=== PATIENT | male | born 1940 | race Caucasian/White ===

== ENCOUNTER 2019-08-18 09:52 | Emergency (ER) | payer OTHER ==
[2019-08-18] MEDS ORDERED: NA CHLORIDE 0.9% 500 ML ONE (10:25)
[2019-08-18 10:46] LABS: Absolute Lymphocytes (CBC) 1.2 K/uL (0.7-4.9); Basophils % 0.6 % (0-1.3); Hematocrit 39.8 % (39.6-49.0); Lymphocytes % 8.9 % (15.3-44.8); MPV 8.7 fL (7.6-11.3); RBC Red Blood Cell Count 4.38 M/uL (4.33-5.43)
[2019-08-18 11:02] LABS: Potassium 3.9 mmol/L (3.5-5.1)
[2019-08-18 11:07] LABS: Urine Bacteria <20 /HPF (NONE SEEN); Urine Culture Reflex Order NOT NEEDED; Urine Mucus 2+ /HPF (NONE SEEN); Urine RBC <5 /HPF (NONE SEEN)
[2019-08-18 11:10] LABS: Platelet Estimate ADEQ; Urine White Blood Cell Casts OK
[2019-08-18 11:11] LABS: Blood Morphology Comment NOT SEEN (NOT SEEN)
[2019-08-18] MEDS ORDERED: CEFTRIAXONE/SWI 1gm 1 GM/10 ML SYR ONE (11:29)
[2019-08-18] MEDS ORDERED: AZITHROMYCIN IV 500 MG in NA CHLORIDE 0.9% 250 ML IVPB ONE (11:30)
[2019-08-18 11:33] LABS: Urine Blood NEGATIVE (NEG); Urine Glucose NEGATIVE (NEG); Urine Protein TRACE (NEG); Urine Specific Gravity 1.025 (1.005-1.030); Urine pH 5.5 (5.0-7.0)
--- NOTE | 2019-08-18 12:22 | RAD REPORT ---
EXAM DESCRIPTION: Henrry Single View08/18/2019 11:11 am CLINICAL HISTORY: Fever COMPARISON: 2012 FINDINGS: Moderate right basilar opacity Left lung appears clear. The heart is normal size IMPRESSION: Moderate right basilar opacity probably pneumonia. This should be followed until it is c lear to help exclude a post obstructive process/underlying mass
--- OUTSIDE RECORDS SUMMARY | 2019-08-18 12:39 | XMS REPORT | Clinical Summary ---
:1940 Author Organization [facility] Address [address] [place] [address] Care Team Providers Name Role Phone Jose Griffin MD Primary Care Provider Allergies Active Allergy Reactions Severity Noted Date Comments Thiopental Sodium Nausea And Vomiting 06/08/2017 Medications Medication Sig Dispensed Refills Start Date End Date Status aspirin 81 MG EC tablet Take 81 mg by 0 Active mouth daily. amLODIPine (NORVASC) 10 Take 10 mg by 0 Active MG tablet mouth daily. silodosin (RAPAFLO) 8 Take by mouth 0 Active mg Cap nightly . dorzolamide-timolol Place 1 drop into 0 Active (COSOPT) 22.3-6.8 mg/mL the left eye 2 ophthalmic solution (two) times daily . brimonidine (ALPHAGAN 1 drop 2 (two) 0 Active P) 0.1 % Drop times daily Left eye. loratadine (CLARITIN) Take 10 mg by 0 Active 10 mg tablet mouth daily. omeprazole-sodium Take 1 capsule by 0 Active bicarbonate (ZEGERID) mouth 2 (two) 40-1.1 mg-gram per times daily. capsule tamsulosin (FLOMAX) 0.4 Take 0.4 mg by 0 Active mg Cap 24 hr capsule mouth daily. METHAZOLAMIDE ORAL Take by mouth. 0 Active netarsudil Apply to eye(s). 0 Ac tive mesylat/latanoprost (ROCKLATAN OPHT) sodium chloride Apply to eye(s). 0 Active (GONZALES-128 OPHT) OMEPRAZOLE ORAL Take by mouth. 0 Active Active Problems Problem Noted Date Pigmentary glaucoma of both eyes, severe stage 018 Combined forms of age-related cataract of both eyes Encounters Date Type Specialty Care Team Description 06/02/2019 Surgery Sacha Wallace INSERTION,EYE T JENNY Lopez MD SHUNT W/WO ARNALDO T 06/02/2019 Anesthesia Event Ese PizanoMADELYN 06/02/2019 Hospital Encounter Sacha Wallace Pigmentar y glaucoma MD Jessica of both eyes, s evere stage (Primary Dx) 06/02/2019 Travel 05/22/2019 Hospital Encounter Pre-Admission Testing 05/22/2019 Travel after 08/17/2018 Social History Tobacco Use Types Packs/Day Years Used Date Never Smoker Smokeless Tobacco: Never Used Alcohol Use Drinks/Week oz/Week Comments Yes 2 Glasses of wine 3.6 4 Cans of beer Sex Assigned at Date Recorded Not on file Job Start Date Occupation Industry Not on file Not on file Not on file Travel History Travel Start Travel End No recent travel history available. Last Filed Vital Signs Vital Sign Reading Time Taken Blood Pressure 125/65 06/02/2019 9:20 AM CDT Pulse 59 06/02/2019 9:20 AM CDT Temperature 36.7 C (98 F) 06/02/2019 8:47 AM CDT Respiratory Rate 17 06/02/2019 9:20 AM CDT Oxygen Saturation 98% 06/02/2019 9:20 AM CDT Inhaled Oxygen Concentration - - Weight 79.8 kg (176 lb) 05/22/2019 11:54 AM CDT Height 175.3 cm (5' 9") 05/22/2019 11:54 AM CDT Body Mass Index 25.99 05/22/2019 11:54 AM CDT Plan of Treatment Not on file Implants Implanted Type Area Medical Education Coordinator Device Shelf Model / Identifier Expiration Serial / Lot Date Iol Tecnis Zcb00 13.5 [place] [id number] - [id number] Ophthalmolog y Left: ADV MED OPTICS 12/13/2020 [id number] / Implanted: Qty: 1 on 04/23/2017 by Linda Ford MD Eye [id number] / I-Stent Cypass s [id number] - [id number] Ophthalmology Left: A LCON LAB:SURG 05/08/2018 [id number] / Implanted: Qty: 1 on 04/23/2017 by Linda Ford MD Eye [id number] / Iol Tecnis Zcb00 14.0 [place] [id number] - [id number] Ophthalmolog y Right: [employer] OPTICS 01/06/2021 [id number] / Implanted: Qty: 1 on 06/11/2017 by Linda Ford MD Eye [id number] / Ahmed Clearpath Model 250 Ophthalmology Left: NEW WORLD MED 12/25/2020 [id number] / Implanted: Qty: 1 on 06/02/2019 by Sacha Wallace MD Eye [id number] / [id number] Procedures Procedure Name Priority Date/Time Associated Diagnosis Comme nts INSERTION,EYE TUBE 06/02/2019 8:00 AM Pigmentary glau coma, SHUNT W/WO GRAFT CDT bilateral, severe stage Case Notes CASE RESCHEDULED VIA FAX ON 05/13/19 MOVE FROM 06/30/19 TO 06/02/19 after 08/17/2018 Results Not on fileafter 08/17/2018 Insurance Payer Benefit Plan / Group Subscriber ID Type Phone A ddress MEDICARE MEDICARE A B xxxxxxxxxxx Medicare AETNA - MGD CARE AETNA INDEMNITY NON CONTR xxxxxx Comm Guarantor Name Account Type Relation to Date of Phone Billing Patient Address Jef Peter Personal/Family Self 1940 [address] (Home) [place] [address]
--- OUTSIDE RECORDS SUMMARY | 2019-08-18 12:39 | XMS REPORT | Clinical Summary ---
:1940 Author Organization [facility] Address [address] [place] [address] Care Team Providers Name Role Phone Yanick Griffin MD Primary Care Provider Allergies No Known Allergies Medications Medication Sig Dispensed Refills Start Date End Date Status esomeprazole (NexIUM) 0 02/19/2019 Active 40 MG capsule amLODIPine (NORVASC) Take 10 mg by 0 04/19/2019 Active 10 mg tablet mouth daily. tamsulosin (FLOMAX) Take 0.4 mg by 0 02/14/2019 Active 0.4 mg capsule mouth daily. brimonidine-timoloL INSTILL 1 DROP 0 08/01/2018 Active (COMBIGAN) 0.2-0.5 % IN LEFT EYE ophthalmic solution EVERY 12 HOURS ROCKLATAN 0.02-0.005 % INSTILL 1 DROP 0 04/07/2019 Active drops IN OS QHS. SUPREP BOWEL PREP KIT 1 kit 1 Bottle 0 04/28/2019 Active 17.5-3.13-1.6 gram recon solnIndications: Adenomatous polyp of colon, unspecified part of colon hyoscyamine Take 1 tablet 20 tablet 12 04/28/2019 04/28/2020 Ac tive (LEVSIN/SL) 0.125 mg (0.125 mg total) SL tabletIndications: by mouth every 4 Functional diarrhea (four) hours as needed for diarrhea. 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; Functional diar seth 04/28/2019 Telephone Gastroenterology Kiara Gomez 04/28/2019 Telephone Gastroenterology Kiara Gomez after 08/17/2018 Family History Relation Name Status Comments Father Mother Social History Tobacco Use Types Packs/Day Years Used Date Never Smoker Smokeless Tobacco: Never Used Alcohol Use Drinks/Week oz/Week Comments Yes Sex Assigned at Date Recorded Not on file Job Start Date Occupation Industry Not on file Not on file Not on file Travel History Travel Start Travel End [place] 04/11/2019 04/16/2019 Last Filed Vital Signs Vital Sign Reading Time Taken Comments Blood Pressure 131/83 04/28/2019 1:09 PM 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 Pulse 75 04/28/2019 1:09 PM 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 Temperature 36.4 C (97.6 F) 04/28/2019 1:09 PM 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 Respiratory Rate - - Oxygen Saturation - - Inhaled Oxygen Concentration - - Weight 81.6 kg (180 lb) 04/28/2019 1:09 PM 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 Height - - Body Mass Index - - Plan of Treatment Health Maintenance Due Date Last Done Comments SHINGLES VACCINES (#1) 05/26/1991 65+ PNEUMOCOCCAL VACCINE (2 of 2 - PPSV23) 05/25/200611/15 INFLUENZA VACCINE 10/04/2019 COLONOSCOPY SCREENING 05/14/2022 05/15/2019 Procedures Procedure Name Priority Date/Time Associated Diagnosis Comme nts SURGICAL PATHOLOGY Routine 05/15/2019 1:58 PM Re sults for this REQUEST CDT procedure are i n the results section. after 08/17/2018 Results Surgical pathology request (05/15/2019 1:58 PM CDT) [facility] DEPARTMENT OF PATHOLOGY AND GENOMIC MEDICINE Surgical pathology See link below [facility] DEPARTMENT OF report for PDF Lab PATHOLOGY AND Report GENOMIC MEDICINE Result status This is Final [facility] DEPARTMENT OF Report for PATHOLOGY AND [id number] GENOMIC MEDICINE Specimen Performing Organization Address City/State/Zipcode Phone Number [facility] DEPARTMENT OF PATHOLOGY AND [address] [place], [place] [address] GENOMIC MEDICINE after 08/17/2018 Insurance Payer Benefit Plan / Subscriber ID Effective Dates Phone Addre ss Type Group MEDICARE MEDICARE PART A xxxxxxxxxxx 2006-Present 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
--- NOTE | 2019-08-18 12:40 | ER ---
Nurse's Notes [facility] Name: Jef Peter Age: 79 yrs Sex: Male : 1940 Arrival Date: 08/18/2019 Time: 09:58 Bed 5 Private MD: Melissa Griffin C Diagnosis: Fever, unspecified;Pneumonia, unspecified organism Presentation: 08/17 10:10 Chief complaint: Patient states: woke up this morning feeling achy and had fever and iw chills , did a lot of work this weekend and feels worn out. Coronavirus screen: Patient denies a cough. Patient denies shortness of breath or difficulty breathing. Patient reports a measured and/or subjective temperature greater than 100.4F. Patient denies travel on a cruise ship or to a country the [facility] currently lists as an affected area. Patient denies contact with known and/or suspected case of COVID-19. Ebola Screen: Patient negative for fever greater than or equal to 101.5 degrees Fahrenheit, and additional compatible Ebola Virus Disease symptoms Patient denies exposure to infectious person. Patient denies travel to an Ebola-affected area in the 21 days before illness onset. No symptoms or risks identified at this time. Initial Sepsis Screen: Does the patient meet any 2 criteria? No. Patient's initial sepsis screen is negative. Does the patient have a suspected source of infection? No. Patient's initial sepsis screen is negative. Risk Assessment: Do you want to hurt yourself or someone else? Patient reports no desire to harm self or others. 10:10 Acuity: ALANNA 3 iw 10:10 Method Of Arrival: Ambulatory iw Historical: - Allergies: 10:14 sodium pentothal; iw - Family history:: not pertinent. - Hospitalizations: : No recent hospitalization is reported. Screenin:20 Abuse screen: Denies threats or abuse. Nutritional screening: No deficits noted. em Tuberculosis screening: No symptoms or risk factors identified. Fall Risk None identified. Assessment: 10:20 General: Appears in no apparent distress. comfortable, Behavior is calm, cooperative, em appropriate for age, Reports chills for 12-24 hours, fever for 12-24 hours. Pain: Denies pain. Neuro: Level of Consciousness is awake, alert, obeys commands, Oriented to person, place, time, situation, Appropriate for age. Cardiovascular: Denies chest pain, Capillary refill < 3 seconds Patient's skin is warm and dry. Respiratory: Airway is patent Respiratory effort is even, unlabored, Respiratory pattern is regular, symmetrical, Denies cough, shortness of breath. GI: Abdomen is flat, Patient currently denies nausea, vomiting. : Denies burning with urination. Derm: Skin is intact, is healthy with good turgor, Skin is pink, warm \T\ dry. Musculoskeletal: Capillary refill < 3 seconds, Range of motion: intact in all extremities. 11:15 Reassessment: Patient appears in no apparent distress at this time. Patient and/or hb family updated on plan of care and expected duration. Pain level reassessed. Patient is alert, oriented x 3, equal unlabored respirations, skin warm/dry/pink. 12:17 Reassessment: Patient appears in no apparent distress at this time. Patient and/or em family updated on plan of care and expected duration. Pain level reassessed. Patient is alert, oriented x 3, equal unlabored respirations, skin warm/dry/pink. 12:47 Reassessment: pending completion of IV ABX before being discharged. em Vital Signs: 10:10 BP 126 / 94; Pulse 62; Resp 16; Temp 98.7; Pulse Ox 98% on R/A; iw 11:15 BP 126 / 55; Pulse 61; Resp 15; Pulse Ox 98% on R/A; hb 12:17 BP 127 / 67; Pulse 61; Resp 16; Pulse Ox 100% on R/A; Pain 0/10; em ED Course: 09:58 Patient arrived in ED. mr 09:58 Melissa Griffin MD is Private Physician. mr 10:04 Tio Matos MD is Attending Physician. rn 10:12 Maikol Guerrero, AMA is Primary Nurse. em 10:13 Triage completed. iw 10:20 Patient has correct armband on for positive identification. Bed in low position. Call em light in reach. Pulse ox on. NIBP on. 10:20 Arm band placed on. em 10:27 Inserted saline lock: 20 gauge in right antecubital area, using aseptic technique. em Blood collected. 10:27 Initial lab(s) drawn, by me, sent to lab. First set of blood cultures drawn by me. em 10:30 Urine Culture Sent. dh3 10:30 Urine Microscopic Only Sent. dh3 11:11 XRAY Chest (1 view) In Process Unspecified. EDMS 12:38 Melissa Griffin MD is Referral Physician. rn 12:44 covid swab sent to lab. em 13:01 No provider procedures requiring assistance completed. IV discontinued, intact, em bleeding controlled, No redness/swelling at site. Pressure dressing applied. 15:56 Health Dept notified/ PUI # [id number]/ [place] in lab notified. eb Administered Medications: 10:30 Drug: NS 0.9% 500 ml Route: IV; Rate: bolus; Site: right antecubital; em 11:27 Follow up: IV Status: Completed infusion; IV Intake: 500ml em 11:28 Drug: Rocephin 1 grams Route: IV; Rate: calculated rate; Site: right antecubital; em 11:45 Follow up: Response: No adverse reaction; IV Status: Completed infusion; IV Intake: 10mlem 11:54 Drug: Zithromax 500 mg Route: IVPB; Infused Over: 1 hrs; Site: right antecubital; em 13:02 Follow up: Response: No adverse reaction; IV Status: Completed infusion; IV Intake: em 250ml Intake: 11:27 IV: 500ml; Total: 500ml. em 11:45 IV: 10ml; Total: 510ml. em 13:02 IV: 250ml; Total: 760ml. em Outcome: 12:38 Discharge ordered by . rn 13:01 Discharged to home ambulatory. em 13:01 Condition: good 13:01 Discharge instructions given to patient, Instructed on discharge instructions, follow up and referral plans. medication usage, Demonstrated understanding of instructions, follow-up care, medications, Prescriptions given X 1. 13:03 Patient left the ED. em Addendum: 08/22/2019 14:02 Addendum: Other pt notified of negative COVID-19 swab results. Pt advised to remain in d m5 isolation until fever free for 3 days and to return to the ED for worsening symptoms. Signatures: Dispatcher [employer] EDUT Darby Hanley RN RN dm5 Rivera, Mary mr Munoz, Edgar, RN RN Renee Montelongo RN RN Tio Matos MD MD rn Baxter, Heather, RN RN Esmer Ervin 3 Magui Woodward
--- OUTSIDE RECORDS SUMMARY | 2019-08-18 12:40 | XMS REPORT | Continuity of Care Document ---
:1940 Author Organization [facility] t Address [address] [place] [address] Care Team Providers Name Role Phone Jose Griffin MD Primary Care Physician Rodrigo GERARD, León Attending Clinician Jessica Wallace MD Attending Clinician Harinder JOSHI Attending Clinician Beth HENRY Attending Clinician Unavailable Hiren Pleitez MD Attending Clinician Patricia Attending Clinician Unavailable Payers Payer Name Policy Policy Number Effective Expiration Source Type Date Date MEDICAREMEDICARE A xxxxxxxxxxx [facility] AETNA - MGD CAREAETNA xxxxxx [facility] INDEMNITY NON - Medical CONTRxxxxxxComm Center MEDICAREMEDICARE PART A xxxxxxxxxxx 2006 [place] AND 00:00:00 [facility] Bxxxxxxxxxxx2006[place] H[place],POS,EPO, xxxxxx 2019 [facility]/ECxxxxxx2019-Pre 00:00:00 Maryann Lara Problems Condition Condition Condition Status Onset Resolution Last Treating Co mments Source Name Details Category Date Date Treatment Clinician Date Pigmentary Pigmentary Disease Active [facility] glaucoma glaucoma 2-14 [facility] - of both of both 00:00: Medical eyes, eyes, 00 Center severe severe stage stage Combined Combined Disease Active [facility] of forms of 2-14 [facility] - age-relate age-relate 00:00: Me dical d cataract d cataract 00 Ce nter of both of both eyes eyes GERD GERD Disease Active [place] (gastroeso (gastroeso Me thodi phageal phageal st reflux reflux disease) disease) Colon Colon Disease Active [place] polyp polyp Methodi [facility] Newman Newman Disease Active [place] esophagus esophagus Meth ag st Diarrhea Diarrhea Disease Active [place] [facility] Method[facility] Allergies, Adverse Reactions, Alerts Allergy Allergy Status Severity Reaction(s) Onset Inactive Treating Comm ents Source Name Type Date Date Clinician Arnie Martinezi Active Nausea And [facility] I [facility] al ty to Vomiting 4-06 [facility] - Sodium adverse 00:00: Medical reaction 00 [facility] Social History Social Habit Start Date Stop Date Quantity Comments Source Sex Assigned At [facility] M ethodist Alcohol intake 2019-04-28 2019-04-28 Current drinker [place] [facility] 00:00:00 00:00:00 of alcohol (finding) Smoking Status Start Date Stop Date Source Never smoker [facility] Medications Ordered Filled Start Stop Current Ordering Indication Dosage Frequency Signature Comments Components Source Medication Medication Date Date Medication? Clinician (SIG) Name Name OMEPRAZOLE Yes Take by [facility] ORAL 3-19 mouth. [facility] - 11:47: Medical 54 Morning Sun sodium 2019-0 Yes Apply to [facility] chloride 3-19 eye(s). [facility] - (GONZALES-128 11:47: Medical OPHT) 20 Center netarsudil 2019-0 Yes Apply to [facility] mesylat/lat 3-19 eye(s). [facility] - anoprost 11:46: Medical ([facility] Center OPHT) METHAZOLAMI 2019-0 Yes Take by [facility] DE ORAL 3-19 mouth. [facility] - 11:46: Medical 39 Morning Sun tamsulosin 2019-0 Yes .4mg QD Take 0.[address] (FLOMAX) 3-19 mg by [facility] - 0.4 mg Cap 11:34: mouth Medica l 24 hr 35 daily. Morning Sun capsule SUPREP 2019-0 Yes Adenomatous 1 kit [place] BOWEL PREP 2-24 polyp of Metho di KIT 00:00: colon, st 17.5-3.13-1 00 unspecified .6 gram part of recon soln colon hyoscyamine 2020- No Functional .125mg Q4H Take 1 [place] (LEVSIN/SL) 2-24 02-24 diarrhea tablet M ethodi 0.125 mg SL 00:00: 23:59 (0.[address] tablet 00 :00 total) by mouth every 4 (four) hours as needed for diarrhea. Place under tongue amLODIPine Yes 10mg QD Take 10 mg [place] (NORVASC) 2-15 by mouth Method i 10 mg 00:00: daily. st tablet 00 ROCKLATAN Yes INSTILL 1 [place] 0.02-0.005 2-03 DROP IN OS Met hodi % drops 00:00: QHS. st 00 esomeprazol 2018-03 Yes [place] (NexIUM) 2-18 Methodi 40 MG 00:00: st capsule 00 tamsulosin 2018-03 Yes .4mg QD Take 0.4 [place] (FLOMAX) 2-13 mg by Methodi 0.4 mg 00:00: mouth st capsule 00 daily. brimonidine Yes INSTILL 1 [place] -timoloL 5-30 DROP IN Methodi (COMBIGAN) 00:00: LEFT EYE st 0.2-0.5 % 00 EVERY 12 ophthalmic HOURS solution omeprazole- Yes 1{capsu Q.5D Take [address] sodium 4-06 le} capsule by [facility] - bicarbonate 12:40: mouth 2 Med ical (ZEGERID) 17 (two) Center 40-1.1 times mg-gram per daily. capsule silodosin Yes QD Take by [facility] t (RAPAFLO) 8 4-06 mouth [facility] - mg Cap 12:38: nightly . Medica l 33 Center dorzolamide Yes 1[drp] Q.5D Place [address] -timolol 4-06 drop into [facility] - (COSOPT) 12:38: the left Medic al 22.3-6.8 33 eye 2 Center mg/mL (two) ophthalmic times solution daily . brimonidine Yes 1[drp] Q.5D [address] (ALPHAGAN 4-06 (two) [facility] - P) 0.1 % 12:38: times Medical Drop 33 daily Left Center eye. aspirin 81 2017- Yes 81mg QD Take [address] MG EC 2-16 by mouth [facility] - tablet 11:27: daily. [address] amLODIPine Yes 10mg QD Take [address] (NORVASC) 2-16 by mouth [facility] - 10 MG 11:27: daily. [facility] tablet [address] [place] [address] loratadine Yes 10mg QD Take [address] (CLARITIN) 2-16 by mouth [facility] - 10 mg 11:27: daily. Medical tablet [address] [place] [address] Vital Signs Vital Name Observation Time Observation Value Comments Source Systolic blood 2019-06-02 09:20:00 125 mm[Hg] [facility] Diastolic blood 2019-06-02 09:20:00 65 mm[Hg] [facility] Heart rate 2019-06-02 09:20:00 59 /min [facility] Respiratory rate 2019-06-02 09:20:00 17 /min [facility] Oxygen saturation in 2019-06-02 09:20:00 98 /min [facility] - Arterial blood by Medical Ce nter Pulse oximetry Body temperature 2019-06-02 08:47:00 36.67 Brianna [facility] Body height 2019-05-22 11:54:00 175.3 cm [facility] Body weight Measured 2019-05-22 11:54:00 79.833 kg [facility] BMI 2019-05-22 11:54:00 25.99 kg/m2 [facility] Systolic blood 2019-04-28 13:09:00 131 mm[Hg] [place] [facility] pressure Diastolic blood 2019-04-28 13:09:00 83 mm[Hg] [place] [facility] pressure Heart rate 2019-04-28 13:09:00 75 /min [facility] Body temperature 2019-04-28 13:09:00 36.44 Brianna [place] [facility] Body weight 2019-04-28 13:09:00 81.647 kg Pal Wolf Procedures Procedure Date / Time Performed Performing Clinician Sourc e INSERTION,EYE TUBE 2019-06-02 08:00:00 Sacha Wallace [facility] - SHUNT W/WO GRAFT [facility] SURGICAL PATHOLOGY 2019-05-15 13:58:00 Robb Pleitez [facility] REQUEST Plan of Care Planned Activity Planned Date Details Comments Source Future Scheduled 2022-05-14 COLONOSCOPY SCREENING Benoit sykes [facility] Test 00:00:00 [code = COLONOSCOPY SCREENING] Future Scheduled 2019-10-04 INFLUENZA VACCINE [place] [facility] Test 00:00:00 [code = INFLUENZA VACCINE] Future Scheduled 2006 65+ PNEUMOCOCCAL [place] [facility] Test 00:00:00 VACCINE (2 of 2 - PPSV23) [code = 65+ PNEUMOCOCCAL VACCINE (2 of 2 - PPSV23)] Future Scheduled 1991-05-26 SHINGLES VACCINES (#1) H [facility] [facility] Test 00:00:00 [code = SHINGLES VACCINES (#1)] Encounters Start End Encounter Admission Attending Care Care Encounter Source Date/Time Date/Time Type Type Clinicians Facility Department ID 2019-07-10 2019-07-10 Office FERMÍN Wallace [id number] 09:22:03 09:32:03 Visit Peter AMBULATOR [id number] Tae-Jin Y 0.2.7.2.686 [id number] 2019-06-26 2019-06-26 Office FERMÍN Wallace [id number] 10:01:04 10:11:04 Visit Peter AMBULATOR [id number] Tae-Jin Y 0.2.7.2.686 [id number] 2019-06-10 2019-06-10 Office FERMÍN Wallace [id number] 09:07:56 09:22:56 Visit Peter AMBULATOR [id number] Tae-Jin Y 0.2.7.2.686 [id number] 2019-06-03 2019-06-03 Office FERMÍN Wallace [id number] 08:54:37 09:09:37 Visit Peter AMBULATOR [id number] Tae-Jin Y 0.2.7.2.686 [id number] 300 2019-05-29 2019-05-29 Office FERMÍN Wallace [id number] 09:42:15 09:57:15 Visit Sacha AMBULATOR [id number] León Y [id number] [id number] 2019-05-15 2019-05-15 Outpatient [facility] [id number] [place] 00:00:00 00:00:00 ROBB [address] 2019-04-25 2019-04-25 Office WallaceFERMÍN [id number] 10:38:18 12:00:50 Visit Sacha AMBULATOR [id number] León Y 0.2.7.2.686 [id number] Results Test Description Test Time Test Comments Results Result Comments Source Surgical pathology request 2019-05-16 15:05:49 Test Item Value Reference Range Interpretation Comme nts Case number (test code = [id number]) [id number] Surgical pathology report (test code = See link below for PDF Lab R eport 7025) Result status (test code = [id number]) This is Final Report for [id number] Pal Wolf
--- NOTE | 2019-08-18 12:41 | EDPHYS ---
Physician Documentation [facility] Name: Jef Peter Age: 79 yrs Sex: Male : 1940 Arrival Date: 08/18/2019 Time: 09:58 Bed 5 Private MD: Melissa Griffin C ED Physician Tio Matos HPI: 08/17 10:13 This 79 yrs old Male presents to ER via Ambulatory with complaints of Fever, rn Chills. 10:13 The patient reports fever, that was measured at 104 degrees Fahrenheit. Onset: The rn symptoms/episode began/occurred this morning. Modifying factors: there are no obvious modifying factors. Severity of symptoms: At their worst the symptoms were mild in the emergency department the symptoms have improved. The patient has not recently seen a physician. Reports woke up with fever/chills, took aspirin, and feels a little better, strauss snot report focal symptoms other than "allergies" and achy/fatigue. No chest pain/sob/abd pain/vomiting/diarrhea. Reports nausea this AM. . Historical: - Allergies: 10:14 sodium pentothal; iw - Family history:: not pertinent. - Hospitalizations: : No recent hospitalization is reported. 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 Exam: 10:13 Constitutional: This is a well developed, well nourished patient who is awake, alert, rn and in no acute distress. Head/Face: Normocephalic, atraumatic. Neck: Trachea midline, no thyromegaly or masses palpated, and no cervical lymphadenopathy. Supple, full range of motion without nuchal rigidity, or vertebral point tenderness. No Meningismus. Cardiovascular: Regular rate and rhythm. No pulse deficits. Respiratory: Speaking full sentences. No increased work of breathing, no retractions or nasal flaring. Abdomen/GI: soft, non-tender Skin: Warm, dry. MS/ Extremity: Pulses equal, no cyanosis. Neuro: Awake and alert, GCS 15, oriented to person, place, time, and situation. Cranial nerves II-XII grossly intact. Motor strength 5/5 in all extremities. Sensory grossly intact. Cerebellar exam normal. Normal gait. Vital Signs: 10:10 BP 126 / 94; Pulse 62; Resp 16; Temp 98.7; Pulse Ox 98% on R/A; iw 11:15 BP 126 / 55; Pulse 61; Resp 15; Pulse Ox 98% on R/A; hb 12:17 BP 127 / 67; Pulse 61; Resp 16; Pulse Ox 100% on R/A; Pain 0/10; em MDM: 10:04 Patient medically screened. rn 12:37 Differential diagnosis: viral Infection, bacterial infection, URI, pneumonia. Data rn reviewed: vital signs, nurses notes, lab test result(s), radiologic studies, plain films, and as a result, I will discharge patient. Counseling: I had a detailed discussion with the patient and/or guardian regarding: the historical points, exam findings, and any diagnostic results supporting the discharge/admit diagnosis, lab results, radiology results, the need for outpatient follow up, to return to the emergency department if symptoms worsen or persist or if there are any questions or concerns that arise at home. Response to treatment: There is no appreciated change of the patient's symptoms at this time, and as a result, I will discharge patient. Special discussion: I discussed with the patient/guardian in detail that at this point there is no indication for admission to the hospital. It is understood, however, that if the symptoms persist or worsen the patient needs to return immediately for re-evaluation. ED course: Pt still feels fine, no oxygen requirement, CXR shows RLL pneumonia, will send COVID test and dc home. Return precautions given. Will make appt with Dr. Griffin.. 12:39 ED course: Patient clarifies story, states tmax was 100.4, not 104.. rn 08/17 10:13 Order name: CBC with Diff; Complete Time: 11:51 rn 08/17 10:13 Order name: Basic Metabolic Panel; Complete Time: 11:06 rn 08/17 10:13 Order name: Flu; Complete Time: 11:06 rn 08/17 10:13 Order name: Strep; Complete Time: 10:55 rn 08/17 10:13 Order name: Procalcitonin; Complete Time: 11:51 rn 08/17 10:13 Order name: Urine Culture 08/17 10:13 Order name: Urine Microscopic Only; Complete Time: 11:51 rn 08/17 10:13 Order name: Blood Culture Adult (2) 08/17 10:13 Order name: XRAY Chest (1 view); Complete Time: 12:32 rn 08/17 10:32 Order name: Urine Dipstick--Ancillary (enter results); Complete Time: 11:51 eb 08/17 11:23 Order name: Throat Culture [facility] 08/17 11:24 Order name: CBC Smear Scan [facility] 08/17 12:10 Order name: COVID-19 08/17 10:13 Order name: IV Start; Complete Time: 10:33 rn 08/17 10:13 Order name: Urine Dipstick-Ancillary (obtain specimen); Complete Time: 10:30 rn Administered Medications: 10:30 Drug: NS 0.9% 500 ml Route: IV; Rate: bolus; Site: right antecubital; em 11:27 Follow up: IV Status: Completed infusion; IV Intake: 500ml em 11:28 Drug: Rocephin 1 grams Route: IV; Rate: calculated rate; Site: right antecubital; em 11:45 Follow up: Response: No adverse reaction; IV Status: Completed infusion; IV Intake: 10mlem 11:54 Drug: Zithromax 500 mg Route: IVPB; Infused Over: 1 hrs; Site: right antecubital; em 13:02 Follow up: Response: No adverse reaction; IV Status: Completed infusion; IV Intake: em 250ml Disposition: 08/18/19 12:38 Discharged to Home. Impression: Fever, unspecified, Pneumonia, unspecified organism. - Condition is Stable. - Discharge Instructions: Fever, Adult, Community-Acquired Pneumonia, Adult. - Prescriptions for Levaquin 750 mg Oral Tablet - take 1 tablet by ORAL route once daily for 10 days; 10 tablet. - Medication Reconciliation Form, Thank You Letter, Antibiotic Education, Prescription Opioid Use form. - Follow up: Melissa Griffin MD; When: As needed; Reason: Recheck today's complaints, Re-evaluation by your physician. - Problem is new. - Symptoms have improved. 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 Impression: Fever, unspecified; Pneumonia, em unspecified organism. Condition is Stable. Forms are Medication Reconciliation Form, Thank You Letter, Antibiotic Education, Prescription Opioid Use. Follow up: Melissa Griffin; When: As needed; Reason: Recheck today's complaints, Re-evaluation by your physician. Problem is new. Symptoms have improved. rn
--- OUTSIDE RECORDS SUMMARY | 2019-08-18 12:41 | XMS REPORT | Summary of Care ---
:1940 Author Organization [facility] [place] [address] Care Team Providers Name Role Phone Nick Poe MD Unavailable Reason for Visit Reason Comments Postoperative Examination Encounter Details Date Type Department Care Team Description 06/26/[address] [facility] MD León Examination Ophthalmology [address] [place] [address] [place], [place] [phone] [id number] Allergies Active Allergy Reactions Severity Noted Date Comments Thiopental Nausea And Vomiting 06/08/2017 documented as of this encounter (statuses as of 06/26/2019) Medications Medication Sig Dispensed Refills Start Date End Date Status aspirin 81 MG Take 81 mg 0 Activ e tablet by mouth daily. Pantoprazole Sodium Take by 0 Active (PROTONIX OR) mouth. Silodosin (RAPAFLO) Take by 0 Active 8 MG CAPS mouth. esomeprazole Take 40 mg 0 Active (NEXIUM) 40 MG by mouth capsule every morning (before breakfast). amlodipine Take 10 mg 0 Active (NORVASC) 10 MG by mouth tablet daily. loratadine Take 10 mg 0 Active (CLARITIN) 10 MG by mouth tablet daily. omeprazole Take 10 mg 0 Active (PRILOSEC) 10 MG by mouth capsule daily. Sodium Chloride, Apply to 0 Act jordan Hypertonic, (GONZALES eye. 128) 2 % SOLN Netarsudil-Latanopr Place 1 Drop 0 Active ost (ROCKLATAN) into the 0.02-0.005 % SOLN left eye at bedtime. prednisoLONE Place 1 Drop 10 mL 2 05/29/2019 Act jordan acetate (PRED into the FORTE) 1 % left eye ophthalmic four times suspension daily. Shake well before each use methazolAMIDE 50 MG Take 50 mg 60 Each 5 06/10/2019 Active TABS by mouth two times daily. brimonidine-timolol Place 1 Drop 5 mL 6 06/26/2019 Active (COMBIGAN) 0.2-0.5 into the % ophthalmic left eye two solution times daily. 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 documented as of this encounter Last Filed Vital Signs Not on filedocumented in this encounter Progress Notes Sacha Wallace MD - 06/26/2019 9:40 AM CDT Study performed/reviewed: none Assessment & Plan: ICD-10-CM 1. Glaucoma shunt device of left eye Z96.89 2. 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 Fuchs' corneal dystrophy H18.51 POW#3+ tube shunt OS -Continue Pred Forte TID OS -Continue Combigan BID & Rocklatan qhs OS -Continue Neptazane 50mg PO BID Stop Neptazane on 07/05 Return in about 2 weeks (around 07/10/2019). Risks, benefits, and alternatives of treatment discussed with the patient/guardian. All questions regarding diagnosis and treatment answered to satisfaction. 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 documented in this encounter Insurance Payer Benefit Plan / Subscriber ID Effective Dates Phone Addre ss Type Group MEDICARE MEDICARE PART A xxxxxxxxxxx 2006-Present [address] Medicare & [place] [address] AETNA INDEMNITY/TRADIT xxxxxxxxx 2000-Present [address] Indemnity [place] [address] A[employer]NA INDEMNITY/TRADIT xxxxxx 2013-Present [address] Indemnity [place] [address] Guarantor Name Account Type Relation to Date of Phone Billing Patient Address Jef Peter Personal/Family Self 1940 [phone] (Home) [place] [address] documented as of this encounter
--- OUTSIDE RECORDS SUMMARY | 2019-08-18 12:41 | XMS REPORT | Summary of Care ---
:1940 Author Organization [facility] [place] [address] Care Team Providers Name Role Phone Nick Poe MD Unavailable Reason for Visit Reason Comments Post-op Follow-up POW#1 Tube shunt OS 0 Encounter Details Date Type Department Care Team Description [facility] Ophthalmolo ana m Traore MD (POW#1 Tube shunt OS 1975 [address] 06/02/2019) [place] [address] [place] [address] [phone] Allergies No Known Allergiesdocumented as of this encounter (statuses as of 06/10/2019) Medications Medication Sig Dispensed Refills Start Date [...] Chloride, Apply to 0 Act jordan Hypertonic, (KEVIN eye. 128) 2 % SOLN COMBIGAN 0.2-0.5 % INSTILL 1 5 mL 6 08/01/2018 Active ophthalmic solution DROP IN LEFT EYE EVERY [address]-Lat[address]opr Place 1 Drop 0 Active ost (ROCKLATAN) into the 0.02-0.005 % SOLN left eye at bedtime. prednisoLONE Place 1 Drop 10 mL 2 05/29/2019 Act jordan acetate (PRED into the FORTE) 1 % left eye ophthalmic four times suspension daily. Shake well before each use methazolAMIDE 50 MG Take 50 mg 60 Each 5 06/10/2019 Active TABS by mouth two times daily. methazolAMIDE 50 MG Take 50 mg 60 Each 5 04/25/2019 06/10/19 2 Discontinued TABS by mouth two [address] 1 Drop 1 Bottle 0 05/29/2019 Dis continued (ZYMAXID) 0.5 % into the 0 (*Th erapy ophthalmic solution left eye 3 completed) times daily. 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 Glaucoma shunt device of left eye Z96.89 2. 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 Fuchs' corneal dystrophy H18.51 Post-op Week #1 s/p Tube shunt, left eye -Stop gatifloxacin TID -decrease Pred Forte to TID -Continue Combigan BID & Rocklatan qhs OS Resume Neptazane 50mg PO BID Kevin 128 PRN -Wear protective eye wear during the day and shield at bedtime -Patient instructed not to rub the operative eye, lift anything heavy, or perform any strenuous activities -Symptoms of infection were discussed with patient and the patient agreed to return to clinic immediately if aforementioned symptoms were experienced. Call if increased pain, redness or decreased vision. Return in about 2 weeks (around 06/24/2019). -To consider LSL Risks, benefits, and alternatives of treatment discussed [...] MEDICARE PART A xxxxxxxxxxx 2006-Present [address] Medicare [place] [address] AETNA INDEMNITY/TRADIT xxxxxxxxx 2000-Present [address] Indemnity [place] CHOICE - [place] [address] AETNA INDEMNITY/TRADIT xxxxxx 2013-Present [address] [facility] [place] [address] Guarantor Name Account Type Relation to Date of Phone Billing Patient Address Jef Peter Personal/Family Self 1940 [address] (Home) [place] [address] documented as of this encounter
--- OUTSIDE RECORDS SUMMARY | 2019-08-18 12:41 | XMS REPORT | Summary of Care ---
:1940 Author Organization [facility] [place] [address] Care Team Providers Name Role Phone Nick Poe MD Unavailable Reason for Visit Reason Comments Post-op Follow-up Tube shunt OS 06-02-2019 Encounter Details Date Type Department Care Team Description 06/03/2019 [facility] Medicine Ophthalmolo gy MD León (Tube shunt OS 1975 [address] 06-02-2019) [place] [address] [place] [address] [phone] Allergies No Known Allergiesdocumented as of this encounter (statuses as of 06/03/2019) Medications Medication Sig Dispensed Refills Start Date End Date Status aspirin 81 MG tablet Take 81 mg by 0 Active mouth daily. Pantoprazole Sodium Take by mouth. 0 Active (PROTONIX OR) Silodosin (RAPAFLO) 8 Take by mouth. 0 Active MG CAPS esomeprazole (NEXIUM) Take 40 mg by 0 Active 40 MG capsule mouth every morning (before breakfast). amlodipine (NORVASC) 10 Take 10 mg by 0 Active MG tablet mouth daily. loratadine (CLARITIN) Take 10 mg by 0 Active 10 MG tablet mouth daily. omeprazole (PRILOSEC) Take 10 mg by 0 Active 10 MG capsule mouth daily. Sodium Chloride, Apply to eye. 0 Active Hypertonic, (KEVIN 128) 2 % SOLN COMBIGAN 0.2-0.5 % INSTILL 1 DROP IN 5 mL 6 08/01/2018 Active ophthalmic solution LEFT EYE EVERY 12 HOU[address] Netarsudil-Latanoprost Place 1 Drop into 0 Active (ROCKLATAN) 0.02-0.005 the left eye at % SOLN bedtime. methazolAMIDE 50 MG Take 50 mg by 60 Each 5 04/25/2019 Active TABS mouth two times daily. gatifloxacin (ZYMAXID) Place 1 Drop into 1 Bottle 0 0 Active 0.5 % ophthalmic the left eye 3 solution times daily. prednisoLONE acetate Place 1 Drop into 10 mL 2 05/29/2019 Active (PRED FORTE) 1 % the left eye four ophthalmic suspension times daily. 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 Glaucoma shunt device of left eye Z96.89 2. 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 Fuchs' corneal dystrophy H18.51 4. Glaucoma filtering bleb, both eyes Z98.83 Post-op Day #1 s/p Tube shunt, left eye -Start gatifloxacin TID and Pred Forte 4 times daily, in the operative eye -Continue Combigan BID & Rocklatan qhs OS Hold Nepj luiszaphilip Kevin 128 PRN -Wear protective eye wear during the day and shield at bedtime -Patient instructed not to rub the operative eye, lift anything heavy, or perform any strenuous activities -Symptoms of infection were discussed with patient and the patient agreed to return to clinic immediately if aforementioned symptoms were experienced. Call if increased pain, redness or decreased vision. Return in about 1 week (around 06/10/2019). Risks, benefits, and alternatives of treatment discussed with the patient/guardian. All questions regarding diagnosis and treatment answered to satisfaction. documented in this encounter Plan of Treatment Date Type Specialty Care Team Description 06/10/2019 Office Visit Ophthalmology Sacha Wallace MD [address] [place] [phone] Health Maintenance Due Date Last Done Comments TETANUS SHOT (ADULT) 1956 MEDICARE AWV (Initial) 05/03/2006 FALL SCREEN 2006 PNEUMOVAX >=65 (PPSV23) 2006 PREVNAR >= 65 (PCV13) 2006 FLU VACCINE > 6 MONTHS 10/03/2018 documented as of this encounter Results Not on filedocumented in this encounter Visit Diagnoses Diagnosis Glaucoma shunt device of left eye - Prim anand Other states following surgery of eye an d adnexa Pigmentary glaucoma of both eyes, 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 Endothelial corneal dystrophy Glaucoma filtering bleb, both eyes Other states following surgery of eye an d adnexa documented in this encounter Insurance Payer Benefit Plan / Subscriber ID Effective Dates Phone Addre ss Type Group MEDICARE MEDICARE PART A xxxxxxxxxxx 2006-Present [address] Medicare [place] [address] A[employer]NA INDEMNITY/TRADIT xxxxxxxxx 2000-Present [address] Indemnity IONAL CHOICE - [place] [address] AETNA INDEMNITY/TRADIT xxxxxx 2013-Present [address] Indemnity [employer] [facility] [facility] [employer] [id number] Guarantor Name Account Type Relation to Date of Phone Billing Patient Address Jef Peter Personal/Family Self 1940 [address] (Home) [place] [address] documented as of this encounter
--- OUTSIDE RECORDS SUMMARY | 2019-08-18 12:41 | XMS REPORT | Summary of Care ---
:1940 Author Organization [facility] [place] [address] Care Team Providers Name Role Phone Nick Poe MD Unavailable Reason for Visit Reason Comments Pre-op Exam Tube shunt OS Encounter Details Date Type Department Care Team Description [facility]ast[facility] (Tube Medicine Ophthalmolo gy MD León shunt OS) 1975 [address] [place] [address] [place] [address] [phone] Allergies No Known Allergiesdocumented as of this encounter (statuses as of 05/29/2019) Medications Medication Sig Dispensed Refills Start Date [...] Chloride, Apply to eye. 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, left eyelid 11/21/2011 GERD (gastroesophageal reflux disease) 03/31/2011 documented as of this encounter (statuses as of 05/29/2019) Social History Tobacco Use Types Packs/Day Years [...] of this encounter Last Filed Vital Signs Vital Sign Reading Time Taken Comments Blood Pressure 135/69 05/29/2019 10:01 AM CDT Pulse 51 05/29/2019 10:01 AM CDT Temperature - - Respiratory Rate - - Oxygen Saturation - - Inhaled Oxygen Concentration - - Weight - - Height - - Body Mass Index - - documented in this encounter Progress Notes Sacha Wallace MD - 05/29/2019 9:45 AM CDT Chief Complaint Patient presents with Pre-op Exam Tube shunt OS History of Present Illness: Patient Active Problem List Diagnosis GERD (gastroesophageal reflux disease) Glaucoma filtering bleb, both eyes Ptosis, left eyelid Ptosis Pigmentary glaucoma of both eyes, severe stage Pseudophakia, both eyes Fuchs' corneal dystrophy Past Medical History: Diagnosis Date Newman syndrome Cataracts, bilateral GERD (gastroesophageal reflux disease) GERD (gastroesophageal reflux disease) Glaucoma 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 aspirin Take 81 mg by mouth daily. Combigan INSTILL 1 DROP IN LEFT EYE EVERY 12 HOURS 5 mL 6 esomeprazole Take 40 mg by mouth every morning (before breakfast). loratadine Take 10 mg by mouth daily. methazolAMIDE Take 50 mg by mouth two times daily. 60 Each [address] 1 Drop into the left eye at bedtime. omeprazole Take 10 mg by mouth daily. Pantoprazole Sodium (PROTONIX OR) Take by mouth. Silodosin Take by mouth. Sodium Chloride (Hypertonic) Apply to eye. No facility-administered medications prior to visit. Allergies as of 05/29/2019 (No Known Allergies) Past Surgical History: Procedure Laterality Date HX ESOPHAGECTOMY HX EYE SURGERY HX GASTRIC RESTRICTION SURGERY Treatment for Newman's HX KNEE SURGERY CO GLAUCOMA SURG,TRAB AB EXT,PREV SCAR 02/20/2011 CO GLAUCOMA SURG,TRABECU AB EXTERNO 03/08/2012 Review of Systems: No chest pain or shortness of breath. No fever/chills. Physical Exam: Vital Signs Pulse: 51 BP: 135/69 General: Alert Oriented, No Acute Distress HEENT: No Mass or Deformity Neck: No Thyromegaly, No lymphadenopathy Heart: Normal Rhythm, No Murmur or Gallop Lungs: Clear to ascultation Thorax: No mass of deformity Abdomen: No mass or tenderness Back: No significant abnormalities Extremities: No edema or tenderness Impression: Encounter Diagnosis and Orders ICD-10-CM 1. Pigmentary glaucoma of both eyes, severe stage H40.1333 2. Glaucoma filtering bleb, both eyes Z98.83 3. Fuchs' corneal dystrophy H18.51 4. Pseudophakia, both eyes Z96.1 IMPRESSION AND REVIEW OF INFORMED CONSENT: Jef Peter and I have discussed that his/her glaucoma is not adequately controlled in the left eye despite the use of maximum tolerated medical therapy and that a glaucoma drainage tube shunt with corneal patch graft has been recommended. The patient understands that this is a surgical procedure in which we will make several incisions in the eye and place a reservoir connected to a tube between the extraocular muscles. The tube will then be positioned inside the eye to divert intraocular fluid out of the eye and to the reservoir. The patient understands that the primary goal of this surgery is to lower the eye pressure. Like all incisional surgical procedures, potential sight-threatening complications include bleeding, infection, and retinal detachment, any of which could result in permanent partial or complete loss of vision. A partial list of other potential complications includescataract development, pain, redness, persistently low eye pressure, persistently high eye pressure, temporary or permanent double vision, lid drooping, anaesthesia complications, and the need for additional surgery. I have reviewed the risks, benefits, and alternatives associated with glaucoma drainage tube shunt surgery and the patient wishes to proceed. Combigan BID OS Rocklatan qhs OS Neptazane 50mg PO BID All questions and concerns were addressed. Plan: Inferonasal ClearPath 250 w/ scleral flap, left eye -fenx3 Will use Pred Forte documented in this encounter Plan of Treatment Date Type Specialty Care Team Description 06/02/2019 Appointment Ophthalmology Sacha Wallace MD [address] [place] [address] [phone] 06/03/2019 Office Visit Ophthalmology Sacha Wallace MD [address] [place] [address] 06/10/2019 Office Visit Ophthalmology Sacha Wallace MD [address] [place] [address] [phone] Health Maintenance Due Date Last Done Comments TETANUS SHOT (ADULT) 1955 MEDICARE AWV (Initial) 05/03/2006 FALL SCREEN 2006 PNEUMOVAX >=65 (PPSV23) 2006 PREVNAR >= 65 (PCV13) 2006 FLU VACCINE > 6 MONTHS 10/03/2018 documented as of this encounter Results Not on filedocumented in this encounter Visit Diagnoses Diagnosis Pigmentary glaucoma of both eyes, severe stage - Primary Pigmentary open-angle glaucoma Glaucoma filtering bleb, both eyes Other states following surgery of eye an d adnexa 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, both eyes Lens replaced by other means documented in this encounter Insurance Payer Benefit Plan / Subscriber ID Effective Dates Phone Addre ss Type Group MEDICARE MEDICARE PART A xxxxxxxxxxx 2006-Present [address] Medicare [place] [address] [employer] INDEMNITY/TRADIT xxxxxxxxx 2000-Present [address] Indemnity [place] [employer] [address] [employer] INDEMNITY/TRADIT xxxxxx 2013-Present [address] Indemnity [place] [place] [employer] [address] Guarantor Name Account Type Relation to Date of Phone Billing Patient Address Jef Peter Personal/Family Self 1940 [address] [place] ([place]) [place] [address] documented as of this encounter
--- OUTSIDE RECORDS SUMMARY | 2019-08-18 12:42 | XMS REPORT | Summary of Care ---
:1940 Author Organization [facility] [place] [address] Care Team Providers Name Role Phone Nick Poe MD Unavailable Reason for Visit Reason Comments Glaucoma Encounter Details Date Type Department Care Team Description 07/10/2019 Office Visit [facility] Sacha Wallace, Glaucoma Ophthalmology 1975 [address] [place] [address] [place] [address] [phone] Allergies Active Allergy Reactions Severity Noted Date Comments Thiopental Nausea And Vomiting 06/08/2017 documented as of this encounter (statuses as of 07/10/2019) Medications Medication Sig Dispensed Refills Start Date [...] Active Hypertonic, (GONZALES 128) 2 % SOLN Netarsudil-Latanoprost Place 1 Drop into 0 Active (ROCKLATAN) 0.02-0.005 the left eye at % SOLN bedtime. prednisoLONE acetate Place 1 Drop into 10 mL 2 05/29/2019 Active (PRED FORTE) 1 % the left eye four ophthalmic suspension times daily. Shake well before each use methazolAMIDE 50 MG Take 50 mg by 60 Each 5 06/10/2019 Active TABS mouth two times daily. brimonidine-timolol Place 1 Drop into 5 mL 6 06/26/2019 Active (COMBIGAN) 0.2-0.5 % the left eye two ophthalmic solution times daily. 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 COVID-19 Exposure Response Date Recorded In the last month, have you been in contact with No / Unsure 07/10/2019 9:20 AM CDT someone who was confirmed or suspected to have Coronavirus / COVID-19? documented as of this encounter Last Filed Vital Signs Not on filedocumented in this encounter Patient Instructions Patient InstructionsSacha Wallace MD - 07/10/2019 9:30 AM CDTStop Rocklatan (white cap) Combigan (blue cap) 2x/day, left eye Pred Forte/prednisolone, left eye 3x/day for 1 week, then 2x/day for 2 weeks, then 1x/day for 2 weeks, then STOP documented in this encounter Progress Notes Sacha Wallace MD - 07/10/2019 9:30 AM CDT Study performed/reviewed: none Assessment & Plan: ICD-10-CM 1. Glaucoma shunt device of left eye Z96.89 2. 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 Fuchs' corneal dystrophy H18.51 4. Glaucoma filtering bleb, both eyes Z98.83 Post-op Week #5 s/p Tube shunt, left eye -Tube open with improved IOP -Pred Forte taper 3-2-2-1-1-0 weekly -Continue Combigan BID OS Stop Rocklatan Already stopped Neptazane as instructed -Patient instructed not to rub the operative eye, lift anything heavy, or perform any strenuous activities for 1 more week -Call if increased pain, redness or decreased vision. Return for 4-6 weeks. Risks, benefits, and alternatives of treatment discussed with the patient/guardian. All questions regarding diagnosis and treatment answered to satisfaction. documented in this encounter Plan of Treatment Health Maintenance Due Date Last Done Comments TETANUS SHOT (ADULT) 1955 MEDICARE AWV (Initial) 05/03/2006 PNEUMOVAX >=65 (PPSV23) 2006 PREVNAR >= 65 (PCV13) 2006 FLU VACCINE > 6 MONTHS 10/04/2019 FALL SCREEN 06/25/2020 06/26/2019 documented as of this encounter Results Not [...] MEDICARE PART A xxxxxxxxxxx 2006-Present [address] Medicare & [place] [address] [employer] INDEMNITY/TRADIT xxxxxx 2013-Present [address] Indemnity [place]ICE [place] [employer] [address] Guarantor Name Account Type Relation to Date of Phone Billing Patient Address Jef Peter Personal/Family Self 1940 [address] [place] (Home) [place] [address] documented as of this encounter
[2019-08-18 13:09] VITALS: TEMP 98.7
[2019-08-18 13:12] VITALS: BP 127/67; O2SAT 100
== END 2019-08-18 13:03 | disposition home or self-care (01) ==
LOC: ER 09:52
DX: J18.9 Pneumonia, unspecified organism (principal); Z20.828 Contact with and (suspected) exposure to other viral communicable diseases; Z88.8 Allergy status to other drugs, medicaments and biological substances
CPT/HCPCS: 96365; 96367; 96361; 87040 ×2; 87070; 87088; 85025; 80048; 36415; 87081; 84145; 87804 ×2; 71045; 99284; U0001; J0456; J0696; J7030; J7040; 81003; 81015; 87086